=== PATIENT | female | born 1980 | race African-American/Black ===

== ENCOUNTER 2016-04-24 11:08 | Emergency (ER) ==
[2016-04-24 11:17] VITALS: BP 158/100
[2016-04-24 11:41] LABS: URINE SOURCE CLEAN CATCH
[2016-04-24 11:52] LABS: BILIRUBIN URINE NEGATIVE (NEGATIVE); BLOOD URINE 4+ (NEGATIVE); CLARITY CLEAR (CLEAR); COLOR YELLOW; GLUCOSE URINE NEGATIVE (NEGATIVE); LEUKOCYTES URINE TRACE (NEGATIVE); NITRITE URINE NEGATIVE (NEGATIVE); PROTEIN URINE TRACE mg/dL (NEGATIVE); URINE MICROSCOPIC NEEDED? YES; UROBILINOGEN URINE NORMAL
[2016-04-24 11:57] LABS: URINE EPITHELIAL CELLS <10 /HPF (<10)
--- NOTE | 2016-04-24 13:00 | PROVIDER DOCUMENTATION ---
HPI-General Adult - General Chief Complaint: Cough Stated Complaint: COLD SX Time Seen by Provider: 04/24/16 12:20 Source: patient Allergies/Adverse Reactions: Patient Allergies Allergy/AdvReac Type Severity Reaction Status Date / Time No Known Allergies Allergy Verified 12/16/15 12:20 Home Medications: Methyldopa 250 mg PO TID 12/16/15 - History of Present Illness -Gen Adult Nature of Presenting Problems: Reports to er with cc of cough since yesterday with green production and fever with nasal drainage,sorthroat, bodyaches,chills. Reports otc cough syrup with no relief. Pt also reports frequency. Location of Pain/Injury: reports: generalized Quality of Pain: reports: aching Severity: reports: moderate Onset/Duration: reports: 24 hours ago Timing: reports: still present Similar Symptoms Previously?: No Recently seen or treated by another doctor?: No Review of Systems - Adult - REVIEW OF SYSTEMS - ADULT Constitutional: reports: chills, fever. denies: fatique, night sweats Eyes: reports: no symptoms reported Ears, Nose, Mouth & Throat: reports: sinus problem, throat pain. denies: ear pain Cardiovascular: denies: chest pain, irregular heart rate, orthopnea Respiratory: reports: cough. denies: pleurisy, shortness of breath, wheezing Gastrointestinal: reports: no symptoms reported Genitourinary: reports: no symptoms reported Musculoskeletal: reports: no symptoms reported Integumentary: reports: no symptoms reported Neurological: reports: no symptoms reported Psychiatric: reports: no symptoms reported Endocrine: reports: no symptoms reported Hematologic/Lymphatic: reports: no symptoms reported Allergic/Immunologic: reports: no symptoms reported All Other Systems: Reviewed and Negative Past History - Adult - PAST MEDICAL HISTORY-ADULT Review of Records: reports: Nursing Assessment Review Major Childhood Illnesses: reports: denies history Cardiovascular: reports: HTN Respiratory: reports: denies history Gastrointestinal: reports: denies history Obstetrical/Gynecological: reports: denies history Genitourinary: reports: denies history Musculoskeletal: reports: denies history Neurological: reports: denies history Endocrine/Immune: reports: denies history Other Conditions: reports: denies history - PRIOR SURGERIES/PROCEDURES Surgical/Procedure History: reports: appendectomy, tonsillectomy - IMMUNIZATION STATUS Childhood Immunizations: See Nurse Assessment Flu Vaccine: See Nurse Assessment - FAMILY HISTORY Family History: reviewed, not pertinent - SOCIAL HISTORY Smoking: denies Substance Use: none/never Physical Exam-General - PHYSICAL EXAM-ADULT Initial Vital Signs Reviewed: Yes - CONSTITUTIONAL General Appearance: appears well, alert, no apparent distress - EYES Eyes: PERRL/EOMI, pink conjunctivae - HEAD, EARS, NOSE, MOUTH & THROAT HENMT: normocephalic/atraumatic, moist mucous membranes, other (Fluid behind bilateral ear drums) - NECK Neck: non-tender, full range of motion, supple, normal inspection - RESPIRATORY Respiratory: chest non-tender, lungs clear, normal breath sounds, no pleuratic chest pain, no respiratory distress, no accessory muscle use - CARDIOVASCULAR Cardiovascular: normal peripheral pulses, regular rate, rhythm, no edema - GASTROINTESTINAL (ABDOMEN) Abdominal Exam: normal bowel sounds, non tender, soft - LYMPHATIC Lymphatic: no adenopathy - MUSCULOSKELETAL Back Exam: normal inspection, no CVA tenderness, no vertebral tenderness Extremity: normal range of motion, non-tender, normal gait, other (right foot walking boot) - SKIN Integumentary: normal color, normal turgor, warm/dry - NEUROLOGIC Neurologic: grossly normal, no motor/sensory deficits - PSYCHIATRIC Psych/Mental Status: normal mood/affect, normal thought content, normal thought process, oriented x 3 Progress - PLAN OF CARE/RESULTS Progress/Plan/Lab Results: Orders Category Date Time Status CHEST-1 VIEW [RAD] Stat Exams 04/24/16 12:22 Taken Flu [INFLUENZA SCREEN PL] Stat Lab 04/24/16 11:40 Completed TEST-URINE [PREG] Stat Lab 04/24/16 11:[address] [URINALYSIS] Stat Lab 04/24/16 11:40 Completed URINE MICROSCOPIC [URINALYSIS] Stat Lab 04/24/16 11:40 Completed Vital Signs - 24 hr 04/24/16 11:13 Temperature 100 F H Pulse Rate 119 H Respiratory 18 Rate Blood Pressure 158/100 O2 Sat by Pulse 100 Oximetry Laboratory Tests 04/24/16 04/24/16 04/24/16 11:40 11:40 11:40 Urine Source CLEAN CATCH Urine Color YELLOW Urine Clarity CLEAR Urine pH 5.0 Ur Specific [place] 1.020 Urine Protein TRACE A Urine Ketones NEGATIVE Urine Blood 4+ Urine Nitrite NEGATIVE Urine Bilirubin NEGATIVE Urine Urobilinogen NORMAL Urine Microscopic RBC 10-20 A Urine WBC TRACE A Urine Microscopic WBC 1-4 Ur Epithelial Cells <10 Urine Bacteria 2+ Urine Glucose NEGATIVE Urine Test NEGATIVE Influenza A (Rapid) NEGATIVE Influenza B (Rapid) NEGATIVE Departure - Departure Time of Disposition Order: 13:49 DIAGNOSIS: URI (upper respiratory infection) Qualifiers: URI type: unspecified URI Qualified Code(s): J06.9 - Acute upper respiratory infection, unspecified Disposition: HOME 01 Certified Medical Emergency: Emergent Condition: Stable Additional Instructions: ED Follow Up Instructions: You have been treated by a care provider in the Emergency Department. These instructions are being provided to you so you can have an understanding of how to care for yourself upon discharge. Upon discharge from the Emergency Department, you are responsible for making arrangements for follow-up care by a physician of your choice. Take all prescribed medications as directed. Return to the Emergency Department immediately for any new or worsening symptoms. You may call the Physician Referral phone number at [phone] to obtain a list of Physicians who are taking new patients. Attestation - Scribe Verification/Attestation Scribe:: Rico Brown Acting as Scribe for:: Mari Tyler Jr Scribe documention review:: This chart was documented by a scribe and accurately reflects the service the provider performed and the decisions made by the provider.
--- NOTE | 2016-04-24 13:59 | Diag Imaging Result Document ---
PROCEDURE NAME: CHEST-1 VIEW - 04/24/2016 PORTABLE CHEST X-RAY: COMPARISON: 02/07/2013. FINDINGS: The lungs are normally expanded and clear. Heart size and mediastinal contours are normal. No pneumothorax or pleural effusion. IMPRESSION: Negative exam.
== END 2016-04-24 14:05 | disposition home or self-care (01) ==
LOC: P.ED 11:08
DX: J06.9 Acute upper respiratory infection, unspecified (principal); R05 Cough; R09.3 Abnormal sputum; R50.9 Fever, unspecified; J02.9 Acute pharyngitis, unspecified; R35.0 Frequency of micturition; I10 Essential (primary) hypertension; Z79.899 Other long term (current) drug therapy
CPT/HCPCS: 71010; 81001; 81025; 87804; 99283

== ENCOUNTER 2016-07-01 07:53 | Day surgery (SDC) ==
[2016-07-01] MEDS ORDERED: PEPCID ONE (08:16)
[2016-07-01] MEDS ORDERED: LR 1,000 ML ONE (08:16)
[2016-07-01] MEDS ORDERED: KEFZOL 2 GM/D5W 50 ML ONE (08:16)
[2016-07-01] MEDS ORDERED: REGLAN ONE (08:16)
[2016-07-01] MEDS ORDERED: VERSED ONE (10:28)
[2016-07-01] MEDS ORDERED: NAROPIN 0.5% ONE (10:28)
[2016-07-01] MEDS ORDERED: XYLOCAINE 1% ONE (11:19)
[2016-07-01] MEDS ORDERED: MARCAINE 0.5% PF ONE (11:19)
[2016-07-01] MEDS ORDERED: MORPHINE ONE (13:39)
[2016-07-01] MEDS ORDERED: DIPRIVAN 1% ONE (13:39)
[2016-07-01] MEDS ORDERED: XYLOCAINE 2% JELLY ONE (13:56)
[2016-07-01] MEDS ORDERED: XYLOCAINE-MPF 2% ONE (13:56)
[2016-07-01] MEDS ORDERED: ZOFRAN ONE ×2 (13:56→14:29)
[2016-07-01] MEDS ORDERED: QUELICIN (DOSE) ONE (13:56)
[2016-07-01] MEDS ORDERED: DECADRON ONE (13:56)
[2016-07-01] MEDS ORDERED: TORADOL ONE (14:06)
[2016-07-01] MEDS ORDERED: PERCOCET-5 ONE (14:29)
[2016-07-01 15:53] VITALS: BP 117/71
--- NOTE | 2016-07-01 20:22 | OPERATIVE NOTE ---
PROCEDURE DATE: 07/01/2016 PREOPERATIVE DIAGNOSES: 1. Right posterior tibial tendon tear. 2. Right hindfoot valgus. 3. Right pes planus. POSTOPERATIVE DIAGNOSES: 1. Right posterior tibial tendon tear. 2. Right hindfoot valgus. 3. Right pes planus. PROCEDURE: 1. Right medial displacement calcaneal osteotomy. 2. Right posterior tibial tendon repair. 3. Right flexor digitorum longus transfer. SURGEON: Juan José Cornelius MD STUDIO CAMERA OPERATOR: Osmel Zelaya RN ANESTHESIA: General with LMA and preoperative popliteal block. ESTIMATED BLOOD LOSS: About 30 mL. TOURNIQUET TIME: About 80 minutes. IMPLANTS: 1. Biomet 4-0 cannulated screws x2. 2. Arthrex Bio-tenodesis screw. DISPOSITION: To PACU, hemodynamically stable. INDICATION FOR PROCEDURE: Ms. Bonnie Santos, 36-year-old female, who I have seen in clinic for quite awhile now ended getting a posterior tibial tendon tear. We tried to treat it nonoperatively for a long time and unfortunately, she just has not gotten much better. She is morbidly obese with a BMI of around 50 or so, which is a very tough on her foot anyway. So we discussed operative intervention and to give her a little bit of extra support after we repair the posterior tibial tendon, we talked about a calcaneal osteotomy to medialize it and then also an FDL transfer to give that PT tendon some power. After going over everything with her, she wanted to proceed with surgery. DESCRIPTION OF PROCEDURE: Ms. Santos was identified in the preoperative holding area. The right foot was marked out as correct surgical site. She was then wheeled to the operating room, placed supine on the operating table. All bony prominences were well padded. She was induced under general anesthesia. LMA was placed. Tourniquet was placed to the right thigh. Right lower extremity was then prepped with ChloraPrep and draped in normal sterile fashion. Surgical pause was performed. We identified the correct patient, the correct side, the correct procedure, and preop antibiotics were given. An Esmarch used to exsanguinate the right lower extremity and tourniquet was inflated to 350 mmHg. Total tourniquet time was around 80 minutes. We started in the semi lateral position. She was supine, but she had a big bump under the right buttock area. Made a lateral incision over the calcaneus, dissection was carried down. We were just posterior and inferior to the peroneal tendons and sural nerve. I got a good position on that calcaneus under fluoroscopic imaging and then made a cut across using an osteotome to help break everything up and then lamina director patient financial services as well to spread that area so that we could get a good shift. Ended up shifting her not quite a full cm. Then also rotated just a little bit into varus, not much though and secured that with two 4-0 cannulated screws. I then sutured that lateral side with 2-0 Vicryl for the subcutaneous and nylon on the skin, and then the posterior wound off the heel where the screws in with nylon on the skin. After this, the bumps were removed and on the medial side I made an incision really from the navicular tuberosity up to the posterior aspect of the medial malleolus. Came down onto that posterior tibial tendon sheath opened it up and at the very proximal aspect you could see that the tendon began to be really bulky there and on the side facing the malleoli was a split tear, and so I ended up having to go up a little higher to expose that whole area. I was probably about an area of about 5 cm that was torn and had degenerated tissue in it so ended up cutting out sort of elliptical type area of all that tendinotic tissue. After we got all the tendinotic tissue out then I was able to use a Monocryl and do a running stitch to repair that posterior tibial tendon and I felt I had a really good repair of the tendon. It was tubularized now and it was not as bulky and tendinotic. I decided to keep the tendon because of her young age, and because the rest of the tendon actually looked really good. After the posterior tibial tendon repair then found my FDL tendon just inferior to that. I have followed it down just proximal to the knot of Jigar, tenotomized it there. I whip stitched the end and I got my guidewire in the right position in my navicular tuberosity for my transfer. I drilled that and then passed the tendon from plantar to dorsal. Put it under very good tension, sutured it to the surrounding tissue and then used a Arthrex Bio-tenodesis screw to help secure it even further. I felt I had a really good FDL transfer. At this point, I could pretty easily get her dorsiflexed to neutral so I decided that we probably did not need a gastrocsoleus recession and that was with the knee extended that it did that. So, we irrigated everything and then sewed the subcutaneous with 2-0 Vicryl and the skin with nylon. Adaptic, 4x4s, ABD, soft roll, and posterior splint was applied. Tourniquet was let down. The patient had good capillary refill return to the toes. Patient was then awoken from general anesthesia, moved to her own bed, and taken to the PACU in stable condition. Postoperatively, patient will be nonweightbearing right lower extremity for around 2 months. I will see her in a week in clinic.
== END 2016-07-01 15:45 | disposition home or self-care (01) ==
LOC: OR 07:53
PROVIDERS: ATTEND Orthopaedic Surgery
DX: M21.071 Valgus deformity, not elsewhere classified, right ankle (principal); S96.811A Strain of other specified muscles and tendons at ankle and foot level, right foot, initial encounter; M21.41 Flat foot [pes planus] (acquired), right foot; I10 Essential (primary) hypertension
CPT/HCPCS: 76000; J0330; J0690; J1100; J1885; J2250; J2270; J2405; J2795; J7120; S0020